=== PATIENT | female | born 1945 | race Caucasian/White ===

== ENCOUNTER → 2022-02-02 | Day surgery (SDC) | payer MEDICARE, OTHER ==
[~2022-02-02] VITALS: Ht 165.1 cm; Wt 54.9 kg
[~2022-02-02] MED LIST: ASPIRIN EC81 MG PO; CALCIUM600 MG PO; COZAAR50 MG PO; LIPITOR80 MG PO; METOPROLOL SUCC25 MG PO; NORVASC5 MG PO; PLAVIX75 MG PO; PROTONIX 40MG T40 MG PO; TOPROL XL 50 MG50 MG PO; VITAMIN B-121000 MC1 PO; VITAMIN D31000 UNI1 PO
[2022-02-02 07:58] LABS: HCT 40.5 % (37.0-47.0); HGB 13.2 g/dl (12.5-16.0); MCH 28.5 pg (25.0-31.0); MCHC 32.6 g/dL (32.0-36.0); MCV 87.5 fL (78.0-100.0); MPV 9.3 fL (6.0-9.5); RBC 4.63 M/uL (4.20-5.40); RDW 13.2 % (11.5-14.0)
[2022-02-02 08:22] LABS: ALBUMIN 4.1 g/dL (3.4-5.0); BILIRUBIN - TOTAL 0.5 mg/dL (0.2-1.0); BUN/CREAT RATIO (CALC) 10.7 RATIO; CREATININE 1.22 mg/dL (0.51-0.95); GLOBULIN (CALCULATION) 3.5 g/dL; POTASSIUM 4.3 mmol/L (3.5-5.1); TOTAL PROTEIN 7.6 g/dL (6.4-8.2)
== END | disposition home or self-care (01) ==
LOC: FAS 07:21
PROVIDERS: Surgery
DX: K63.5 Polyp of colon (principal); K58.0 Irritable bowel syndrome with diarrhea; K57.30 Diverticulosis of large intestine without perforation or abscess without bleeding; K56.609 Unspecified intestinal obstruction, unspecified as to partial versus complete obstruction; K63.89 Other specified diseases of intestine; I10 Essential (primary) hypertension; F17.210 Nicotine dependence, cigarettes, uncomplicated; Z86.73 Personal history of transient ischemic attack (TIA), and cerebral infarction without residual deficits; Z88.8 Allergy status to other drugs, medicaments and biological substances; Z79.02 Long term (current) use of antithrombotics/antiplatelets
CPT/HCPCS: 36415; 80053; J1610; J2250; J2704; J7120